=== PATIENT | female | born 1990 | race Caucasian/White ===

== ENCOUNTER 2017-04-25 19:16 | Emergency (ER) | payer OTHER ==
[2017-04-25 19:27] VITALS: BP 129/66; PULSE 108; RESP 18; TEMP 98.8
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
--- NOTE | 2017-04-25 20:04 | XR ---
EXAMINATION TYPE: XR cervical spine comp DATE OF EXAM: 04/25/2017 CLINICAL HISTORY: pain COMPARISON: NONE TECHNIQUE: Frontal, lateral, oblique, swimmers, and open mouth view of the cervical spine are obtaine d. FINDINGS: The cervical spine is visualized in its entirety from C1 thru the top of T1 level. It is s atisfactory in alignment without evidence of acute fracture or dislocation. The pre-vertebral soft t issue appears within normal limits. Disc spaces are well preserved. The C1-C2 articulation is unremar kable on the open mouth view. The oblique images are within normal limits. IMPRESSION: No acute fracture or dislocation is seen in the cervical spine.ICD 10 NO FRACTURE, INITI AL EVALUATION
--- NOTE | 2017-04-25 20:04 | XR ---
EXAMINATION TYPE: XR lumbar spine 2 or 3V DATE OF EXAM: 04/25/2017 CLINICAL HISTORY: pain TECHNIQUE: Three views of the lumbar spine are submitted. COMPARISON: None. FINDINGS: There are 5 lumbar type vertebral bodies identified. The lumbar spine shows satisfactory alignment w ithout evidence of acute fracture or dislocation. Vertebral body heights are within normal limits. Disc spaces are within normal limits. The overlying soft tissue appears unremarkable. Mild curvature convex to the right. IMPRESSION: No acute fracture or dislocation is seen in the lumbar spine. ICD 10 NO FRACTURE, INITIAL EVALUATION
--- NOTE | 2017-04-25 20:05 | XR ---
EXAMINATION TYPE: XR thoracic spine 2V DATE OF EXAM: 04/25/2017 CLINICAL HISTORY: pain TECHNIQUE: Frontal, lateral, and swimmer's view of thoracic spine are obtained. COMPARISON: None. FINDINGS: Thoracic spine show satisfactory alignment without evidence of acute fracture or dislocatio n. Vertebral body heights are preserved. Disc spaces are well preserved. Minimal ventral spondylos is. Visualized ribs are unremarkable. IMPRESSION: No acute fracture or dislocation is seen in the thoracic spine. ICD 10 NO FRACTURE, INIT IAL EVALUATION
[2017-04-25] MEDS ORDERED: CYCLOBENZAPRINE 10 MG TAB PO STA (20:11)
[2017-04-25] MEDS ORDERED: Acetaminophen-Codeine 300-30mg TAB PO STA (20:11)
== END 2017-04-25 20:20 | disposition home or self-care (01) ==
LOC: EC 19:16
DX: S13.4XXA Sprain of ligaments of cervical spine, initial encounter (principal); M54.9 Dorsalgia, unspecified; Z88.8 Allergy status to other drugs, medicaments and biological substances; V46.5XXA Car driver injured in collision with other nonmotor vehicle in traffic accident, initial encounter; Y92.410 Unspecified street and highway as the place of occurrence of the external cause
CPT/HCPCS: 72050; 72070; 72100; 99284

== ENCOUNTER 2018-08-02 08:36 | Emergency (ER) | payer OTHER ==
[2018-08-02] MEDS ORDERED: SODIUM CHLORIDE 0.9% 1,000 ML IV STA (08:52)
[2018-08-02] MEDS ORDERED: ONDANSETRON 4 MG/2 ML VIAL IVP STA (08:52)
[2018-08-02] MEDS ORDERED: MAG HYDROX/AL HYDROX/SIMETH 30 ML, HYOSCYAMINE ELIXIR 10 ML, CIMETIDINE HCL 300 MG, LID... PO STA ×4 (08:52)
--- NOTE | 2018-08-02 08:56 | ED ---
General Adult HPI - General Chief complaint: Upper Respiratory Infection Stated complaint: chest pain/congestion Time Seen by Provider: 08/02/18 08:42 Source: patient, RN notes reviewed Mode of arrival: ambulatory Limitations: no limitations - History of Present Illness Initial comments: Patient 27-year-old female presenting to the emergency room today with a chief complaint of chest pain. She does admit that she's had some pain similar to this in the past for she has drank milk and it has helped the symptoms. She states it started last night before she went to bed. States approximately 8 PM felt a little nauseous. Woke up at 2 PM with some chest discomfort. She states it's from the top the abdomen up to her throat. She states it's a pulling type sensation. She states it is worse when she takes a deep breath. Denies any leg pain or swelling. Denies any other complaints or symptoms at this time. States nausea has improved. Currently rates her pain 4/10. Patient denies any recent fever, chills, back pain, vomiting, numbness or tingling, headaches or visual changes, or any other complaints. - Related Data Previous Rx's Medication Instructions Recorded Acetaminophen-Codeine 300-30mg 1 tab PO Q4H PRN #20 tablet 04/25/17 [Tylenol #3] Cyclobenzaprine [Flexeril] 10 mg PO TID PRN #15 tab 04/25/17 Ibuprofen [Motrin] 600 mg PO Q8HR PRN #30 tab 04/25/17 Famotidine [Pepcid] 20 mg PO BID #20 tablet 08/02/18 Allergies Allergy/AdvReac Type Severity Reaction Status Date / Time terbinafine [From Lamisil] Allergy Unknown Verified 08/02/18 08:40 Review of Systems ROS Statement: Those systems with pertinent positive or pertinent negative responses have been documented in the HPI. ROS Other: All systems not noted in ROS Statement are negative. Past Medical History Past Medical History: No Reported History History of Any Multi-Drug Resistant Organisms: None Reported Past Surgical History: Section, Cholecystectomy, Orthopedic Surgery Past Psychological History: Anxiety Smoking Status: Never smoker Past Alcohol Use History: Occasional Past Drug Use History: None Reported General Exam - General Exam Comments Initial Comments: General: The patient is awake and alert, in no distress, and does not appear acutely ill. Eye: There is normal conjunctiva bilaterally. No signs of icterus. Ears, nose, mouth and throat: There are moist mucous membranes and no oral lesions. Neck: The neck is supple, there is no tenderness or JVD. Cardiovascular: There is a regular rate and rhythm. No murmur, rub or gallop is appreciated. Respiratory: Lungs are clear to auscultation, respirations are non-labored, breath sounds are equal. No wheezes, stridor, rales, or rhonchi. Gastrointestinal: Patient has normal appearance abdomen. Abdomen soft on palpation. Mild tenderness in both left and right upper quadrants and epigastric area. Musculoskeletal: Normal ROM, no tenderness. Strength 5/5. Sensation intact. Pulses equal bilaterally 2+. Neurological: A&O x 3. CN II-XII intact, There are no obvious motor or sensory deficits. Coordination appears grossly intact. Speech is normal. Skin: Skin is warm and dry and no rashes or lesions are noted. Psychiatric: Cooperative, appropriate mood & affect, normal judgment. Limitations: no limitations Course Vital Signs 08/02/18 08/02/18 08:36 09:30 Temperature 98.2 F 96.5 F L Pulse Rate 111 H 91 Respiratory 20 18 Rate Blood Pressure 117/88 128/66 O2 Sat by Pulse 100 97 Oximetry EKG Findings - EKG Comments: EKG Findings:: Patient's EKG performed at 0917: Shows normal sinus rhythm at 85 beats per minute. TX interval 148. QRS 90. QT/QTC 364/433. No acute ST changes. Medical Decision Making - Medical Decision Making Patient's labs were reviewed. Patient was feeling better after GI cocktail. Her d-dimer was elevated at 1.2. CT the chest was obtained showing no evidence of PE. Patient's feeling well at this time will be discharged home. Will be started on a prescription for Pepcid for acid reflux. Patient is advised follow -up with family doctor in the next 2 days returning if symptoms increase or worsen. - Lab Data Result diagrams: 08/02/18 09:38 08/02/18 09:38 Lab Results 08/02/18 08/02/18 08/02/18 Range/Units 09:38 09:38 09:38 WBC 7.9 (3.8-10.6) k/uL RBC 4.64 (3.80-5.40) m/uL Hgb 14.0 (11.4-16.0) gm/dL Hct 40.7 (34.0-46.0) % MCV 87.6 (80.0-100.0) fL MCH 30.2 (25.0-35.0) pg MCHC 34.5 (31.0-37.0) g/dL RDW 12.6 (11.5-15.5) % Plt Count 312 (150-450) k/uL Neutrophils % 83 % Lymphocytes % 10 % Monocytes % 5 % Eosinophils % 1 % Basophils % 0 % Neutrophils # 6.5 (1.3-7.7) k/uL Lymphocytes # 0.8 L (1.0-4.8) k/uL Monocytes # 0.4 (0-1.0) k/uL Eosinophils # 0.1 (0-0.7) k/uL Basophils # 0.0 (0-0.2) k/uL PT (9.0-12.0) sec INR (<1.2) APTT (22.0-30.0) sec D-Dimer (<0.60) mg/L FEU Sodium 140 (137-145) mmol/L Potassium 4.4 (3.5-5.1) mmol/L Chloride 108 H (98-107) mmol/L Carbon Dioxide 24 (22-30) mmol/L Anion Gap 8 mmol/L BUN 15 (7-17) mg/dL Creatinine 0.66 (0.52-1.04) mg/dL Est GFR (CKD-EPI)AfAm >90 (>60 ml/min/1.73 sqM) Est GFR (CKD-EPI)NonAf >90 (>60 ml/min/1.73 sqM) Glucose 93 (74-99) mg/dL Calcium 9.2 (8.4-10.2) mg/dL Total Bilirubin 0.6 (0.2-1.3) mg/dL AST 20 (14-36) U/L ALT 28 (9-52) U/L Alkaline Phosphatase 86 (38-126) U/L Troponin I (0.000-0.034) ng/mL Total Protein 7.1 (6.3-8.2) g/dL Albumin 3.9 (3.5-5.0) g/dL Amylase 53 (30-110) U/L Lipase 48 (23-300) U/L Urine Color Urine Appearance (Clear) Urine pH (5.0-8.0) Ur Specific War[place] (1.001-1.035) Urine Protein (Negative) Urine Glucose (UA) (Negative) Urine Ketones (Negative) Urine Blood (Negative) Urine Nitrite (Negative) Urine Bilirubin (Negative) Urine Urobilinogen (<2.0) mg/dL Ur Leukocyte Esterase (Negative) Urine RBC (0-5) /hpf Urine WBC (0-5) /hpf Ur Squamous Epith Cells (0-4) /hpf Urine Bacteria (None) /hpf Urine Mucus (None) /hpf Urine HCG, Qual Not Detected (Not Detectd) 08/02/18 08/02/18 08/02/18 Range/Units 09:38 09:38 09:38 WBC (3.8-10.6) k/uL RBC (3.80-5.40) m/uL Hgb (11.4-16.0) gm/dL Hct (34.0-46.0) % MCV (80.0-100.0) fL MCH (25.0-35.0) pg MCHC (31.0-37.0) g/dL RDW (11.5-15.5) % Plt Count (150-450) k/uL Neutrophils % % Lymphocytes % % Monocytes % % Eosinophils % % Basophils % % Neutrophils # (1.3-7.7) k/uL Lymphocytes # (1.0-4.8) k/uL Monocytes # (0-1.0) k/uL Eosinophils # (0-0.7) k/uL Basophils # (0-0.2) k/uL PT 10.2 (9.0-12.0) sec INR 0.9 (<1.2) APTT 26.7 (22.0-30.0) sec D-Dimer 1.20 H (<0.60) mg/L FEU Sodium (137-145) mmol/L Potassium (3.5-5.1) mmol/L Chloride (98-107) mmol/L Carbon Dioxide (22-30) mmol/L Anion Gap mmol/L BUN (7-17) mg/dL Creatinine (0.52-1.04) mg/dL Est GFR (CKD-EPI)AfAm (>60 ml/min/1.73 sqM) Est GFR (CKD-EPI)NonAf (>60 ml/min/1.73 sqM) Glucose (74-99) mg/dL Calcium (8.4-10.2) mg/dL Total Bilirubin (0.2-1.3) mg/dL AST (14-36) U/L ALT (9-52) U/L Alkaline Phosphatase (38-126) U/L Troponin I <0.012 (0.000-0.034) ng/mL Total Protein (6.3-8.2) g/dL Albumin (3.5-5.0) g/dL Amylase (30-110) U/L Lipase (23-300) U/L Urine Color Yellow Urine Appearance Cloudy H (Clear) Urine pH 6.0 (5.0-8.0) Ur Specific [place] 1.021 (1.001-1.035) Urine Protein Trace H (Negative) Urine Glucose (UA) Negative (Negative) Urine Ketones Negative (Negative) Urine Blood Moderate H (Negative) Urine Nitrite Negative (Negative) Urine Bilirubin Negative (Negative) Urine Urobilinogen <2.0 (<2.0) mg/dL Ur Leukocyte Esterase Large H (Negative) Urine RBC 2 (0-5) /hpf Urine WBC 37 H (0-5) /hpf Ur Squamous Epith Cells 15 H (0-4) /hpf Urine Bacteria Many H (None) /hpf Urine Mucus Rare H (None) /hpf Urine HCG, Qual (Not Detectd) Disposition Clinical Impression: Acid reflux Disposition: HOME SELF-CARE Condition: Good Instructions: Gastroesophageal Reflux Disease (ED) Additional Instructions: Please use medication as discussed. Please follow-up with family doctor in the next 2 days. Please return to emergency room if the symptoms increase or worsen or for any other concerns. Prescriptions: Famotidine [Pepcid] 20 mg PO BID #20 tablet Is patient prescribed a controlled substance at d/c from ED?: No Referrals: Angela Ashraf MD [Primary Care Provider] - 1-2 days Time of Disposition: 12:24
[2018-08-02 10:03] LABS: Basophils % (A) 0 %; Eosinophils # (A) 0.1 k/uL (0-0.7); Eosinophils % (A) 1 %; HCT 40.7 % (34.0-46.0); Lymphocytes # (A) 0.8 k/uL (1.0-4.8); Lymphocytes % (A) 10 %; MCH 30.2 pg (25.0-35.0); MCHC 34.5 g/dL (31.0-37.0); MCV 87.6 fL (80.0-100.0); Mean Platelet Volume 7.1; Monocytes # (A) 0.4 k/uL (0-1.0); Monocytes % (A) 5 %; Neutrophils # (A) 6.5 k/uL (1.3-7.7); Neutrophils % (A) 83 %; Platelet Count 312 k/uL (150-450); RBC 4.64 m/uL (3.80-5.40); RDW 12.6 % (11.5-15.5); WBC 7.9 k/uL (3.8-10.6)
[2018-08-02 10:11] LABS: Appearance,Urine Cloudy (Clear); Bacteria,Urine Many /hpf; Bilirubin,Urine Negative (Negative); Blood,Urine Moderate (Negative); Color,Urine Yellow; Glucose,Urine (UA) Negative (Negative); Ketones,Urine Negative (Negative); Leukocyte Esterase,Urine Large (Negative); Mucus,Urine Rare /hpf; Nitrite,Urine Negative (Negative); Protein,Urine Trace (Negative); RBC,Urine 2 /hpf (0-5); Specific Gravity,Urine 1.021 (1.001-1.035); Squamous Epithelial Cell,Urine 15 /hpf (0-4); Urobilinogen,Urine <2.0 mg/dL (<2.0)
[2018-08-02 10:13] LABS: INR 0.9 (<1.2); Partial Thromboplastin Time 26.7 sec (22.0-30.0); Prothrombin Time 10.2 sec (9.0-12.0)
[2018-08-02 10:14] LABS: ALT 28 U/L (9-52); AST 20 U/L (14-36); Albumin 3.9 g/dL (3.5-5.0); Alkaline Phosphatase 86 U/L (38-126); Amylase 53 U/L (30-110); Anion Gap 8 mmol/L; Blood Urea Nitrogen 15 mg/dL (7-17); Calcium 9.2 mg/dL (8.4-10.2); Carbon Dioxide 24 mmol/L (22-30); Chloride 108 mmol/L (98-107); Glucose 93 mg/dL (74-99); Lipase 48 U/L (23-300); Potassium 4.4 mmol/L (3.5-5.1); Sodium 140 mmol/L (137-145); Total Bilirubin 0.6 mg/dL (0.2-1.3); Total Protein 7.1 g/dL (6.3-8.2)
--- NOTE | 2018-08-02 10:26 | XR ---
EXAMINATION TYPE: XR chest 2V DATE OF EXAM: 08/02/2018 COMPARISON: NONE TECHNIQUE: PA and lateral views submitted. HISTORY: Chest pain FINDINGS: The lungs are clear and there is no pneumothorax, pleural effusion, or focal pneumonia. Hypertrophi c change of the spine. Surgical clips in the abdomen. No overt failure. IMPRESSION: 1. No acute process.
[2018-08-02 11:08] LABS: D-Dimer 1.2 mg/L FEU (<0.60)
--- NOTE | 2018-08-02 12:08 | CT ---
EXAMINATION TYPE: CT angio chest DATE OF EXAM: 08/02/2018 COMPARISON: Chest x-ray same date HISTORY: Chest pain/congestion, elevated d-dimer CT DLP: 317 mGycm Automated exposure control for dose reduction was used. CONTRAST: CTA scan of the thorax is performed without and with IV Contrast, patient injected with 100 ml mL of Isovue 370, pulmonary embolism protocol. MIP images are created and reviewed. 3D reconstructed imag es are created on an independent workstation and reviewed. FINDINGS: LUNGS: The lungs are grossly clear, there is no concerning parenchymal mass or nodule identified. T here is no pleural effusion or pneumothorax seen. Minimal dependent atelectatic changes are present. The tracheobronchial tree is patent. Soft tissue in the anterior mediastinum compatible with thymic remnant. AORTA: No additional significant abnormality is seen. MEDIASTINUM: There is satisfactory enhancement of the pulmonary artery and its branches, there is no CT evidence for pulmonary embolism. There are no greater than 1 cm hilar or mediastinal lymph nodes. No pericardial effusion is seen. OTHER: There is a small hiatal hernia. Patient is post cholecystectomy. IMPRESSION: NO EVIDENT PULMONARY EMBOLISM.
[2018-08-02] MEDS ORDERED: FAMOTIDINE 20 MG/2 ML VIAL IV STA (12:22)
[2018-08-02 12:34] VITALS: BP 138/70; PULSE 78; RESP 16; TEMP 97.8
== END 2018-08-02 12:33 | disposition home or self-care (01) ==
LOC: EC 08:36
DX: K21.9 Gastro-esophageal reflux disease without esophagitis (principal); Z88.8 Allergy status to other drugs, medicaments and biological substances
CPT/HCPCS: 36415; 71046; 71275; 80053; 81001; 81025; 82150; 83690; 84484; 85025; 85379; 85610; 85730; 87086; 93005; 96361; 96374; 96375; 99285

== ENCOUNTER → 2019-09-16 | Outpatient (CLI) | payer OTHER ==
--- NOTE | 2019-09-16 11:28 | CT ---
EXAMINATION TYPE: CT sinus wo con DATE OF EXAM: 09/16/2019 COMPARISON: None HISTORY: Chronic sinusitis CT DLP: 577.[address] of the paranasal sinuses was performed in the axial and coronal planes. Bone and soft tissue settings are submitted. The paranasal sinuses demonstrate normal aeration and development. Mild mucosal thickening at the base of the maxillary sinuses. Minimal mucosal thickening upper left s ided ethmoid air cell. Remaining paranasal sinuses are well-aerated. The osteal meatal units are patent bilaterally. The nasal septum is midline. No bony destructive changes are seen within the field of view. IMPRESSION: Mild chronic sinusitis
== END | disposition home or self-care (01) ==
LOC: RADCTMAIN 10:45
PROVIDERS: ATTEND Otolaryngology
DX: J32.9 Chronic sinusitis, unspecified (principal)
CPT/HCPCS: 70486

== ENCOUNTER → 2020-11-24 | Outpatient (CLI) | payer OTHER ==
--- NOTE | 2020-11-25 04:47 | MR ---
EXAMINATION TYPE: MR knee LT wo con DATE OF EXAM: 11/24/2020 COMPARISON: Outside radiograph 11/09/2020 HISTORY: 29-year-old female Left knee pain, swelling, and locking for 2 months. TECHNIQUE: Multiplanar, multisequence imaging of the left knee is performed without IV contrast. FINDINGS: ACL, PCL, and MCL are intact. Some mild tenosynovial fluid is seen extending along the popliteus tendon sheath. Some changes extend into the popliteus myotendinous junction and could reflect sequela of underlying muscle strain. Clin ically correlate. Otherwise, LCL complex is intact. There is signal at the junction of the posterior horn and body of the medial meniscus that appears to contact the tibial articular surface on one image, sagittal image 25. Otherwise, the medial meniscus is intact. Minimal inner margin fraying of the posterior horn of the lateral meniscus, refer to coronal image 22 . Degenerative signal also noted within the body of the lateral meniscus, coronal image 21. Tricompartmental articular cartilage is maintained. Mild edema within the suprapatellar fat pad. Extensor mechanism is intact. Physiologic joint fluid. N o Bryan's cyst. Normal popliteal artery anatomy. No muscle atrophy. Patchy red marrow likely a consequence of patient 's relatively young age. IMPRESSION: 1. Fluid extending along the popliteus myotendinous junction could reflect sequela of previous muscle strain. No significant muscle edema. Clinically correlate. 2. Inner margin fraying along the posterior horn of the lateral meniscus and some degenerative signal in the body of the lateral meniscus. 3. Possible small undersurface meniscal tear at the junction of the posterior horn and body of the me dial meniscus, seen on one sagittal image. 4. Mild edema within the suprapatellar fat pad may be seen in the setting of fat pad impingement synd adry. Clinically correlate.
== END | disposition home or self-care (01) ==
LOC: RADMRIMAIN 15:00
PROVIDERS: ATTEND Orthopaedic Surgery
DX: M17.12 Unilateral primary osteoarthritis, left knee (principal)

== ENCOUNTER → 2020-12-13 | Outpatient (CLI) | payer OTHER ==
[2020-12-13 13:12] LABS: Basophils # (A) 0.1 k/uL (0-0.2); Basophils % (A) 1 %; Eosinophils # (A) 0.2 k/uL (0-0.7); Eosinophils % (A) 3 %; HCT 41.2 % (34.0-46.0); HGB 13.9 gm/dL (11.4-16.0); Lymphocytes # (A) 1.9 k/uL (1.0-4.8); Lymphocytes % (A) 26 %; MCH 29.1 pg (25.0-35.0); MCHC 33.6 g/dL (31.0-37.0); MCV 86.5 fL (80.0-100.0); Mean Platelet Volume 7.3; Monocytes # (A) 0.4 k/uL (0-1.0); Monocytes % (A) 6 %; Neutrophils # (A) 4.7 k/uL (1.3-7.7); Neutrophils % (A) 64 %; Platelet Count 323 k/uL (150-450); RBC 4.77 m/uL (3.80-5.40); RDW 12.6 % (11.5-15.5); WBC 7.3 k/uL (3.8-10.6)
[2020-12-13 13:42] LABS: Potassium 4.2 mmol/L (3.5-5.1)
== END | disposition home or self-care (01) ==
LOC: LABPAT 11:32
PROVIDERS: ATTEND Orthopaedic Surgery
DX: M23.92 Unspecified internal derangement of left knee (principal)
CPT/HCPCS: 36415; 80051; 81025; 85025

== ENCOUNTER 2020-12-23 11:03 | Day surgery (SDC) | payer OTHER ==
[2020-12-20 13:06] VITALS: BMI 38.9
--- NOTE | 2020-12-22 17:24 | HP ---
HISTORY AND PHYSICAL DATE OF SURGERY: 12/23/2020 Nickie Boland is a 30-year-old patient seen with progressive left knee pain. We discussed options. She elected to proceed with arthroscopy. Consent was obtained. PAST MEDICAL HISTORY: Anxiety. PAST SURGICAL HISTORY: Left knee arthroscopy. DAILY MEDICATIONS: Buspirone. ALLERGIES: NONE. SOCIAL HISTORY: She denies tobacco use. PHYSICAL EVALUATION OF THE LEFT KNEE: Range of motion is zero to 130. Mild effusion. Tenderness along the medial and lateral joint lines. Positive medial Clementina's. Ligaments are stable. Hip rotation is without pain. Distal neurovascular exam is intact. RADIOGRAPHS: Radiographs of the left knee revealed mild osteoarthritis. MRI of the left knee revealed a medial meniscal tear. IMPRESSION: Internal derangement of the left knee with medial meniscal tear. PLAN: Left knee arthroscopy with partial meniscectomy and debridement. MMODL / IJN: [id number] /
[~2020-12-23 11:03] MED LIST: LACTATED RINGERS 1,000 ML IV SCH; LIDOCAINE 1% (10MG/ML) FOR IV START INTRADERMA PRN
[2020-12-23] MEDS ORDERED: ONDANSETRON 4 MG/2 ML VIAL ONE (12:18)
[2020-12-23] MEDS ORDERED: DEXAMETHASONE SOD PHOSPHATE 4 MG/ML 1 ML VIAL IVP ONE (12:20)
[2020-12-23] MEDS ORDERED: SCOPOLAMINE 1.5MG/72HR PATCH TRANSDERM ONE (12:21)
[2020-12-23] MEDS ORDERED: fentaNYL (PF) 50 MCG/ML 2 ML AMP ONE (13:05)
[2020-12-23] MEDS ORDERED: PROPOFOL 10 MG/ML 20 ML VIAL IV ONE (13:05)
[2020-12-23] MEDS ORDERED: SUCCINYLCHOLINE CHLORIDE 100 MG/5 ML SYR IV ONE (13:05)
[2020-12-23] MEDS ORDERED: LIDOCAINE 1% INJ 10MG/ML (20 ML MDV) ONE (13:05)
[2020-12-23] MEDS ORDERED: MIDAZOLAM 2 MG/2 ML VIAL ONE (13:05)
[2020-12-23] MEDS ORDERED: BUPIVACAINE (PF) 0.25% 30 ML VIAL SQ ONE ×2 (13:15→13:41)
--- NOTE | 2020-12-23 14:02 | P.OP ---
Date of Procedure: 12/23/20 Preoperative Diagnosis: Internal derangement left knee Postoperative Diagnosis: 1. Tear lateral meniscus left knee 2. Grade 3/4 chondromalacia medial femoral condyle left knee 3. Reactive synovitis medial, lateral and suprapatellar compartments left knee Procedure(s) Performed: 1. Arthroscopic partial lateral meniscectomy left knee 2. Arthroscopic chondroplasty medial femoral condyle left knee 3. Arthroscopic microfracture medial femoral condyle left knee 4. Arthroscopic partial synovectomy medial, lateral and suprapatellar compartments left knee Anesthesia: SOUTHA, local Surgeon: Tu Tavera Estimated Blood Loss (ml): 7 Pathology: none sent Condition: stable Disposition: PACU Indications for Procedure: 30-year-old patient seen with progressive left knee pain. After treatment options were discussed, she elected to proceed with arthroscopy Operative Findings: See description of procedure Description of Procedure: Patient was taken to the operative suite. Patient underwent a general anesthetic by the department of anesthesia. Patient was given preoperative antibiotics. The left lower extremity was placed in a well-padded arthroscopic leg sherman. The left leg was prepped and draped in the normal sterile orthopedic fashion. A lateral parapatellar and suprapatellar incision was made. Trochars were inserted. Arthroscopy was initiated. Suprapatellar pouch revealed diffuse thick reactive synovitis. The patellofemoral joint appeared to articulate congruently. There grade 1 chondromalacia of the patella with no osteochondral tears present. The scope was guided into the medial gutter. No loose bodies or plica were identified. The scope was then guided into the medial compartment. A medial parapatellar incision was made. Trocar inserted followed by probe. There was a large osteochondral flap tear involving the weightbearing surface of the medial femoral condyle with what appeared be grade 3/4 chondromalacia present. The meniscus was probed and found to be stable. There was thick reactive synovitis anteriorly. I introduced a motorized shaver and performed a chondroplasty of the medial femoral condyle getting down to stable osteochondral tissue. I performed a partial synovectomy decompressing the thick reactive synovitis along the anterior aspect medial compartment. The shaver was removed. There was good decompression of the synovitis. That area of grade 3/4 chondromalacia of the medial femoral condyle revealed a small area of exposed bone. I performed a microfracture to that area penetrating the bone with resultant bleeding at the microfracture site. Scope and probe were then guided into the intercondylar notch. Cruciates were identified, probed and found to be table. The scope and probe were then guided into lateral compartment. There was a radial tear involving the midbody area of the lateral meniscus. There was no significant chondromalacia. There was some thick reactive synovitis anteriorly. I performed a partial medial meniscectomy getti ng down to stable meniscal tissue. I performed a partial synovectomy decompressing the thick reactive synovitis. The shaver was removed. There was good decompression of the synovitis. The scope was in guided back into the suprapatellar compartment. I introduced the motorized shaver into the suprapatellar compartment. I debrided some piecemeal fragments of meniscus that I encountered. I performed a partial synovectomy decompressing the thick reactive synovitis. The shaver was removed. There was good decompression of the synovitis. I took one more look on the entire knee, no residual debris. Instruments were now removed from the joint. The joint was infiltrated with .25% Marcaine. Steri-Strips were applied to the portal sites. Sterile dressings were applied. The patient was placed into a AMELIA hose. No tourniquet was utilized. The patient was awakened, transferred to a bed and taken to recovery stable satisfactory condition.
[2020-12-23 14:19] VITALS: TEMP 97.2
[2020-12-23 14:20] VITALS: RESP 16
[2020-12-23 15:14] VITALS: BP 104/67; PULSE 67
== END 2020-12-23 15:24 | disposition home or self-care (01) ==
LOC: OR 11:03
PROVIDERS: ATTEND Orthopaedic Surgery
DX: S83.282A Other tear of lateral meniscus, current injury, left knee, initial encounter (principal); M22.42 Chondromalacia patellae, left knee; M65.862 Other synovitis and tenosynovitis, left lower leg; M17.12 Unilateral primary osteoarthritis, left knee; F41.9 Anxiety disorder, unspecified; Z79.899 Other long term (current) drug therapy; Z88.8 Allergy status to other drugs, medicaments and biological substances; X58.XXXA Exposure to other specified factors, initial encounter
CPT/HCPCS: 29881; 29879; 29876; 81025; J2250; J1100; J0690; J2405; J2001; J3010; J0330; J2704

== ENCOUNTER 2022-02-09 15:00 | Emergency (ER) | payer OTHER ==
[2022-02-09 16:50] VITALS: RESP 18; TEMP 98.9
[2022-02-09 17:21] LABS: Appearance,Urine Turbid (Clear); Bacteria,Urine Moderate /hpf; Bilirubin,Urine Negative (Negative); Blood,Urine Negative (Negative); Color,Urine Yellow; Glucose,Urine (UA) Negative (Negative); Ketones,Urine 1+ (Negative); Leukocyte Esterase,Urine Large (Negative); Mucus,Urine Many /hpf; Nitrite,Urine Positive (Negative); Protein,Urine Trace (Negative); RBC,Urine 5 /hpf (0-5); Specific Gravity,Urine 1.021 (1.001-1.035); Squamous Epithelial Cell,Urine 20 /hpf (0-4); Urobilinogen,Urine <2.0 mg/dL (<2.0); WBC,Urine 28 /hpf (0-5)
[2022-02-09] MEDS ORDERED: SODIUM CHLORIDE 0.9% 1,000 ML IV STA (21:50)
[2022-02-09] MEDS ORDERED: cefTRIAXone IN SWFI 1,000 MG/10 ML SYRINGE IVP STA (21:50)
[2022-02-09] MEDS ORDERED: ONDANSETRON 4 MG/2 ML VIAL IVP STA (21:51)
[2022-02-09] MEDS ORDERED: KETOROLAC 15 MG/ML 1 ML VIAL IVP STA (21:51)
[2022-02-09 22:06] VITALS: BP 123/90; PULSE 70
[2022-02-09 22:12] LABS: Basophils % (A) 0 %; Eosinophils # (A) 0.1 k/uL (0-0.7); Eosinophils % (A) 1 %; HCT 41.8 % (34.0-46.0); Lymphocytes # (A) 1.8 k/uL (1.0-4.8); Lymphocytes % (A) 17 %; MCHC 33.4 g/dL (31.0-37.0); MCV 89.8 fL (80.0-100.0); Monocytes # (A) 0.6 k/uL (0-1.0); Monocytes % (A) 5 %; Neutrophils # (A) 7.9 k/uL (1.3-7.7); Neutrophils % (A) 75 %; Platelet Count 348 k/uL (150-450); RBC 4.65 m/uL (3.80-5.40); RDW 13.1 % (11.5-15.5); WBC 10.5 k/uL (3.8-10.6)
--- NOTE | 2022-02-09 22:14 | ED ---
Abdominal Pain HPI - General Chief Complaint: Abdominal Pain Stated Complaint: Nausea,Vomiting,Back pain Time Seen by Provider: 02/09/22 21:24 Source: patient, RN notes reviewed Mode of arrival: ambulatory Limitations: no limitations - History of Present Illness Initial Comments: This is a 31-year-old female who presents to the emergency department with right lower back pain. This started earlier today, it is wrapping around to the front of her abdomen in the RLQ. Denies any dysuria. She does have associated nausea and vomiting with the pain. She has never had symptoms like this in the past. She has not tried taking anything for her pain. The pain worsens when she tries to move. Denies any fevers, chills, sore throat, cough, dyspnea, chest pain, palpitations, diarrhea, or headaches. MD Complaint: abdominal pain Location: R flank Radiation: RLQ Quality: cramping, stabbing Consistency: constant Worsens With: movement Associated Symptoms: nausea, vomiting - Related Data Home Medications Medication Instructions Recorded Confirmed [id number] 1 tab PO DIRECTED PRN 08/02/12/23/20 [Excedrin] Buspirone (Uknown Dose) 1 tab PO DIRECTED PRN 12/20/20 12/23/20 Calcium Carbonate [Tums] 500 mg PO DIRECTED PRN 12/20/20 12/23/20 Depo Injection 1 dose IM DIRECTED 12/20/20 12/23/20 Depression Med (Unknown Name) 1 tab PO HS 12/20/20 12/23/20 Previous Rx's Medication Instructions Recorded HYDROcodone/APAP 7.5-325MG [[place] 1 each PO Q6HR PRN #21 tab 12/23/20 7.5] HYDROcodone/APAP 5-325MG [[place] 1 tab PO Q6HR PRN 3 Days #12 tab 02/09/22 5-325] Ondansetron Odt [Zofran Odt] 4 mg PO Q8HR PRN #10 tab 02/09/22 Sulfamethox-Tmp 800-160Mg [Bactrim 1 tab PO Q12HR 7 Days #14 tab 02/09/22 DS 800-160 mg] Allergies Allergy/AdvReac Type Severity Reaction Status Date / Time No Known Allergies Allergy Verified 02/09/22 16:50 Review of Systems ROS Statement: Those systems with pertinent positive or pertinent negative responses have been documented in the HPI. ROS Other: All systems not noted in ROS Statement are negative. Past Medical History Past Medical History: No Reported History History of Any Multi-Drug Resistant Organisms: None Reported Past Surgical History: Section, Cholecystectomy, Orthopedic Surgery Additional Past Surgical History / Comment(s): left knee scope x2 Past Psychological History: Anxiety Smoking Status: Never smoker Past Alcohol Use History: Occasional Past Drug Use History: None Reported General Exam Limitations: no limitations General appearance: alert, in no apparent distress Head exam: Present: atraumatic, normocephalic, normal inspection Respiratory exam: Present: normal lung sounds bilaterally. Absent: respiratory distress, wheezes, rales, rhonchi, stridor Cardiovascular Exam: Present: regular rate, normal rhythm, normal heart sounds. Absent: systolic murmur, diastolic murmur, rubs, gallop, clicks GI/Abdominal exam: Present: soft, tenderness (RLQ), normal bowel sounds. Absent: distended, guarding, rebound, rigid Back exam: Present: CVA tenderness (R). Absent: CVA tenderness (L) Neurological exam: Present: alert, oriented X3, CN II-XII intact Psychiatric exam: Present: normal affect, normal mood Skin exam: Present: warm, dry, intact, normal color. Absent: rash Course Vital Signs 02/09/22 02/09/22 16:47 22:00 Temperature 98.9 F Pulse Rate 94 70 Respiratory 18 18 Rate Blood Pressure 125/90 123/90 O2 Sat by Pulse 99 96 Oximetry Medical Decision Making - Medical Decision Making This is a 31-year-old female who presents to the emergency department for right flank pain. Urinalysis is positive for a UTI. Lab work is otherwise nonactionable. Computed tomography scan of the abdomen and pelvis obtained given that the symptoms were similar to an appendicitis and there is not a CT for comparison. Although the patient believes she has a history of kidney stones, we have no imaging in our system to prove that. Computed tomography had no acute irregularities. Given the associated flank pain and nausea/vomiting, she has most likely developed a pyelonephritis. Patient was given IV fluids, Zofran, Toradol, and a one-time dose of ceftriaxone in the emergency department. Patient did feel improved after medication, however she was still in pain. Patient will be discharged with a prescription for Zofran, Bactrim, and [place]. Will also provide a starter pack for Tylenol #3 and Zofran, as pharmacies are closed at the time of her discharge. Return precautions reviewed in depth, the patient is instructed to return to the emergency department with any new, worsening, or concerning symptoms. Patient verbalized understanding. This case was discussed in detail with the attending ED physician. Presentation, findings, and treatment plan discussed in detail as well. - Lab Data Result diagrams: 02/09/22 22:00 02/09/22 22:00 Lab Results 02/09/22 02/09/22 02/09/22 Range/Units 16:50 16:50 22:00 WBC 10.5 (3.8-10.6) k/uL RBC 4.65 (3.80-5.40) m/uL Hgb 14.0 (11.4-16.0) gm/dL Hct 41.8 (34.0-46.0) % MCV 89.8 (80.0-100.0) fL MCH 30.0 (25.0-35.0) pg MCHC 33.4 (31.0-37.0) g/dL RDW 13.1 (11.5-15.5) % Plt Count 348 (150-450) k/uL MPV 8.0 Neutrophils % 75 % Lymphocytes % 17 % Monocytes % 5 % Eosinophils % 1 % Basophils % 0 % Neutrophils # 7.9 H (1.3-7.7) k/uL Lymphocytes # 1.8 (1.0-4.8) k/uL Monocytes # 0.6 (0-1.0) k/uL Eosinophils # 0.1 (0-0.7) k/uL Basophils # 0.0 (0-0.2) k/uL Sodium (137-145) mmol/L Potassium (3.5-5.1) mmol/L Chloride (98-107) mmol/L Carbon Dioxide (22-30) mmol/L Anion Gap mmol/L BUN (7-17) mg/dL Creatinine (0.52-1.04) mg/dL Est GFR (CKD-EPI)AfAm (>60 ml/min/1.73 sqM) Est GFR (CKD-EPI)NonAf (>60 ml/min/1.73 sqM) Glucose (74-99) mg/dL Calcium (8.4-10.2) mg/dL Total Bilirubin (0.2-1.3) mg/dL AST (14-36) U/L ALT (4-34) U/L Alkaline Phosphatase (38-126) U/L Total Protein (6.3-8.2) g/dL Albumin (3.5-5.0) g/dL Amylase (30-110) U/L Lipase (23-300) U/L Urine Color Yellow Urine Appearance Turbid H (Clear) Urine pH 6.0 (5.0-8.0) Ur Specific [place] 1.021 (1.001-1.035) Urine Protein Trace H (Negative) Urine Glucose (UA) Negative (Negative) Urine Ketones 1+ H (Negative) Urine Blood Negative (Negative) Urine Nitrite Positive H (Negative) Urine Bilirubin Negative (Negative) Urine Urobilinogen <2.0 (<2.0) mg/dL Ur Leukocyte Esterase Large H (Negative) Urine RBC 5 (0-5) /hpf Urine WBC 28 H (0-5) /hpf Ur Squamous Epith Cells 20 H (0-4) /hpf Urine Bacteria Moderate H (None) /hpf Urine Mucus Many H (None) /hpf Urine HCG, Qual Not Detected (Not Detectd) 02/09/22 Range/Units 22:00 WBC (3.8-10.6) k/uL RBC (3.80-5.40) m/uL Hgb (11.4-16.0) gm/dL Hct (34.0-46.0) % MCV (80.0-100.0) fL MCH (25.0-35.0) pg MCHC (31.0-37.0) g/dL RDW (11.5-15.5) % Plt Count (150-450) k/uL MPV Neutrophils % % Lymphocytes % % Monocytes % % Eosinophils % % Basophils % % Neutrophils # (1.3-7.7) k/uL Lymphocytes # (1.0-4.8) k/uL Monocytes # (0-1.0) k/uL Eosinophils # (0-0.7) k/uL Basophils # (0-0.2) k/uL Sodium 141 (137-145) mmol/L Potassium 3.7 (3.5-5.1) mmol/L Chloride 104 (98-107) mmol/L Carbon Dioxide 27 (22-30) mmol/L Anion Gap 10 mmol/L BUN 10 (7-17) mg/dL Creatinine 0.67 (0.52-1.04) mg/dL Est GFR (CKD-EPI)AfAm >90 (>60 ml/min/1.73 sqM) Est GFR (CKD-EPI)NonAf >90 (>60 ml/min/1.73 sqM) Glucose 103 H (74-99) mg/dL Calcium 9.3 (8.4-10.2) mg/dL Total Bilirubin 0.4 (0.2-1.3) mg/dL AST 17 (14-36) U/L ALT 17 (4-34) U/L Alkaline Phosphatase 99 (38-126) U/L Total Protein 7.4 (6.3-8.2) g/dL Albumin 4.3 (3.5-5.0) g/dL Amylase 55 (30-110) U/L Lipase 46 (23-300) U/L Urine Color Urine Appearance (Clear) Urine pH (5.0-8.0) Ur Specific [place] (1.001-1.035) Urine Protein (Negative) Urine Glucose (UA) (Negative) Urine Ketones (Negative) Urine Blood (Negative) Urine Nitrite (Negative) Urine Bilirubin (Negative) Urine Urobilinogen (<2.0) mg/dL Ur Leukocyte Esterase (Negative) Urine RBC (0-5) /hpf Urine WBC (0-5) /hpf Ur Squamous Epith Cells (0-4) /hpf Urine Bacteria (None) /hpf Urine Mucus (None) /hpf Urine HCG, Qual (Not Detectd) - Radiology Data Radiology results: report reviewed, image reviewed Disposition Clinical Impression: Pyelonephritis Disposition: HOME SELF-CARE Additional Instructions: Return to the emergency department with any new, worsening, or concerning symptoms. Take the antibiotic as prescribed for 7 days. Use the Zofran as needed for nausea and vomiting and take the [place] sparingly for severe pain, otherwise alternate with Tylenol and ibuprofen. Follow up with your primary care provider in 1 to 2 days. Prescriptions: Sulfamethox-Tmp 800-160Mg [Bactrim DS 800-160 mg] 1 tab PO Q12HR 7 Days #14 tab HYDROcodone/APAP 5-325MG [[place] 5-325] 1 tab PO Q6HR PRN 3 Days #12 tab PRN Reason: Pain Ondansetron Odt [Zofran Odt] 4 mg PO Q8HR PRN #10 tab PRN Reason: Nausea And Vomiting Is patient prescribed a controlled substance at d/c from ED?: Yes If prescribed controlled substance>3 days was MAPS reviewed?: Prescribed <3 Days Referrals: Angela Ashraf MD [Primary Care Provider] - 1-2 days
[2022-02-09 22:24] LABS: ALT 17 U/L (4-34); AST 17 U/L (14-36); African American GFR (CKD) >90 (>60 ml/min/1.73 sqM); Albumin 4.3 g/dL (3.5-5.0); Alkaline Phosphatase 99 U/L (38-126); Amylase 55 U/L (30-110); Anion Gap 10 mmol/L; Blood Urea Nitrogen 10 mg/dL (7-17); Calcium 9.3 mg/dL (8.4-10.2); Carbon Dioxide 27 mmol/L (22-30); Chloride 104 mmol/L (98-107); Glucose 103 mg/dL (74-99); Lipase 46 U/L (23-300); Non-African American GFR(CKD) >90 (>60 ml/min/1.73 sqM); Potassium 3.7 mmol/L (3.5-5.1); Sodium 141 mmol/L (137-145); Total Bilirubin 0.4 mg/dL (0.2-1.3); Total Protein 7.4 g/dL (6.3-8.2)
--- NOTE | 2022-02-09 23:09 | CT ---
EXAMINATION TYPE: CT abdomen pelvis w con DATE OF EXAM: 02/09/2022 COMPARISON: None HISTORY: right flank pain, nausea, vomiting CT DLP: 1310.5 mGycm Automated exposure control for dose reduction was used. CONTRAST: Performed with IV Contrast, patient injected with 100 mL of Isovue 300. Images obtained from the diaphragm to the floor the pelvis with IV contrast. Lung bases are clear. No pleural effusion. Heart size is normal. No pericardial effusion. There is sm all hiatal hernia. Liver spleen stomach pancreas appear intact. Bile ducts are not dilated. There are clips from cholecy stectomy. There is no adrenal mass. Kidneys show normal size and contour. No hydronephrosis. Delayed images amor w normal renal excretion. There is satisfactory renal contrast opacification. There is 2 mm calculus posterior left kidney. The ureters are not dilated. There is no retroperitoneal adenopathy. Bladder d istends smoothly. No inguinal hernia. No free fluid in the pelvis. Uterus is anteverted. No pelvic ma ss. Appendix is inferior and posterior and appears normal. There is no mesenteric edema. No ascites or fr ee air. No sign of a bowel obstruction. The lumbar vertebrae have normal alignment. Posterior element are intact. No compression fracture. [place] pelvis is intact. The hip joints are intact. IMPRESSION: Nonobstructing left renal calculus. Normal appendix. I do not see a cause for right-sided flank pain.
[2022-02-09] MEDS ORDERED: ONDANSETRON 4 MG ODT STARTER PACK 2 TAB BTL PO STA (23:15)
[2022-02-09] MEDS ORDERED: ACET/COD 300 MG/30 MG STARTER PACK 6 TAB BTL PO STA (23:15)
== END 2022-02-09 23:30 | disposition home or self-care (01) ==
LOC: EC 15:00
DX: N12 Tubulo-interstitial nephritis, not specified as acute or chronic (principal)
CPT/HCPCS: 36415; 80053; 82150; 83690; 85025; 81001; 81025; 87086; 74177; 99284; 96374; 96375; 96361; J2405; J0696; J1885; Q9967

== ENCOUNTER → 2023-03-19 | Outpatient (CLI) | payer OTHER | END | disposition home or self-care (01) | LOC: LABWHC1 09:25 | PROVIDERS: ATTEND Obstetrics & Gynecology | DX: N94.89 Other specified conditions associated with female genital organs and menstrual cycle (principal) | CPT/HCPCS: 36415; 86480 ==

== ENCOUNTER 2024-05-03 14:21 | Emergency (ER) | payer OTHER ==
--- NOTE | 2024-05-03 14:51 | ED ---
Abdominal Pain HPI - General Chief Complaint: Abdominal Pain Stated Complaint: abd pain Time Seen by Provider: 05/03/24 14:38 Source: patient, RN notes reviewed Mode of arrival: EMS Limitations: no limitations - History of Present Illness Initial Comments: 33-year-old female with no significant history presents emergency department chief complaint of right lower quadrant abdominal pain that has been present over the past 3 days. Patient states that the pain is intermittent of the right lower quadrant and is exacerbated with movement. States that the pain has increased in size over this timeframe. Endorses feelings of nausea this morning. Denies emesis, fevers or chills, dysuria, hematuria, back or flank pain, vaginal discharge or odor. Previous surgical abdominal history of cholecystectomy and section. Patient states that she had her first IUD placed on 04/22/24. - Related Data Home Medications Medication Instructions Recorded Confirmed [id number] [id number] 1 tab PO DIRECTED PRN 08/02/18 12/23/20 [Excedrin] Buspirone (Uknown Dose) 1 tab PO DIRECTED PRN 12/20/20 12/23/20 Calcium Carbonate [Tums] 500 mg PO DIRECTED PRN 12/20/20 12/23/20 Depo Injection 1 dose IM DIRECTED 12/20/20 12/23/20 Depression Med (Unknown Name) 1 tab PO HS 12/20/20 12/23/20 Previous Rx's Medication Instructions Recorded HYDROcodone/APAP 7.5-325MG [[place] 1 each PO Q6HR PRN #21 tab 12/23/20 7.5] HYDROcodone/APAP 5-325MG [[place] 1 tab PO Q6HR PRN 3 Days #12 tab 02/09/22 5-325] Ondansetron Odt [Zofran Odt] 4 mg PO Q8HR PRN #10 tab 02/09/22 Sulfamethox-Tmp 800-160Mg [Bactrim 1 tab PO Q12HR 7 Days #14 tab 02/09/22 DS 800-160 mg] Cephalexin [Keflex] 500 mg PO Q6HR #40 cap 05/03/24 Allergies Allergy/AdvReac Type Severity Reaction Status Date / Time No Known Allergies Allergy Verified 08/30/23 20:16 Review of Systems ROS Statement: Those systems with pertinent positive or pertinent negative responses have been documented in the HPI. ROS Other: All systems not noted in ROS Statement are negative. Past Medical History Past Medical History: No Reported History History of Any Multi-Drug Resistant Organisms: None Reported Past Surgical History: Section, Cholecystectomy, Orthopedic Surgery Additional Past Surgical History / Comment(s): left knee scope x2 Past Psychological History: Anxiety Smoking Status: Never smoker Past Alcohol Use History: Occasional Past Drug Use History: None Reported General Exam Limitations: no limitations General appearance: alert, in no apparent distress Eye exam: Present: normal appearance, PERRL, EOMI. Absent: scleral icterus, conjunctival injection, periorbital swelling Neck exam: Present: normal inspection. Absent: tenderness, meningismus, lymphadenopathy Respiratory exam: Present: normal lung sounds bilaterally. Absent: respiratory distress, wheezes, rales, rhonchi, stridor Cardiovascular Exam: Present: regular rate, normal rhythm, normal heart sounds. Absent: systolic murmur, diastolic murmur, rubs, gallop, clicks GI/Abdominal exam: Present: soft, tenderness (RLQ and right mid-abdomen), rebound (RLQ), normal bowel sounds. Absent: distended, guarding, rigid Extremities exam: Present: normal inspection, full ROM, normal capillary refill. Absent: tenderness, pedal edema, joint swelling, calf tenderness Back exam: Present: normal inspection Neurological exam: Present: alert, oriented X3, CN II-XII intact Skin exam: Present: warm, dry, intact, normal color. Absent: rash Course Vital Signs 05/03/24 05/03/24 14:26 19:38 Temperature 97.9 F 98.9 F Pulse Rate 100 79 Respiratory 20 16 Rate Blood Pressure 136/91 118/86 O2 Sat by Pulse 99 98 Oximetry Medical Decision Making - Medical Decision Making Was pt. sent in by a medical professional or institution (, PA, GUEST SERVICES COORDINATOR, urgent care, hospital, or senior living...) When possible be specific @ -No Did you speak to anyone other than the patient for history (EMS, parent, family, police, friend...)? What history was obtained from this source @ -No Did you review nursing and triage notes (agree or disagree)? Why? @ -I reviewed and agree with nursing and triage notes Were old charts reviewed (outside hosp., previous admission, EMS record, old EKG, old radiological studies, urgent care reports/EKG's, senior living records)? Report findings @ -No old charts were reviewed Differential Diagnosis (chest pain, altered mental status, abdominal pain women, abdominal pain men, vaginal bleeding, weakness, fever, dyspnea, syncope, headache, dizziness, GI bleed, back pain, seizure, CVA, palpatations, mental health, musculoskeletal)? @ -Differential Abdominal Pain Women: Appendicitis, Cholecystitis, diverticulosis, ischemic bowel, pancreatitis, hepatitis, UTI, gastroenteritis, AAA, incarcerated hernia, bowel obstruction, constipation, inflammatory bowel, hepatitis, peptic ulcer disease, splenic infarction, perforated viscus, vulvitis, ovarian torsion, PID, kidney stone, placenta abruption, this is not meant to be an all-inclusive list EKG interpreted by me (3pts min.). @ -none X-rays interpreted by me (1pt min.). @ -None done CT interpreted by me (1pt min.). @ -CT of the abdomen pelvis reveals possible 2.8 cm cyst of the right ovary enlargement of the ovary and IUD present that is posteriorly tilted with possible migration or erosion of the maintain elevated to the anterior myometrium U/S interpreted by me (1pt. min.). @ -transvaginal ultrasound no evidence for ovarian torsion with a posterior tilt of the IUD and a 3.8 cm cyst of the right ovary. What testing was considered but not performed or refused? (CT, X-rays, U/S, labs)? Why? @ -None What meds were considered but not given or refused? Why? @ -None Did you discuss the management of the patient with other professionals (professionals i.e. , PA, GUEST SERVICES COORDINATOR, lab, RT, psych nurse, older adult social work specialist, assembler final, teacher, security control room officer, case resolution specialist)? Give summary @ -No Was smoking cessation discussed for >3mins.? @ -No Was critical care preformed (if so, how long)? @ -No Were there social determinants of health that impacted care today? How? (Homelessness, low income, unemployed, alcoholism, drug addiction, transportation, low edu. Level, literacy, decrease access to med. care, care home, rehab)? @ -No Was there de-escalation of care discussed even if they declined (Discuss DNR or withdrawal of care, Hospice)? DNR status @ -No What co-morbidities impacted this encounter? (DM, HTN, Smoking, COPD, CAD, Cancer, CVA, ARF, Chemo, Hep., AIDS, mental health diagnosis, sleep apnea, morbid obesity)? @ -None Was patient admitted / discharged? Hospital course, mention meds given and route, prescriptions, significant lab abnormalities, going to OR and other pertinent info. @ -discharged. 33-year-old female evaluated. Patient resting comfortably in no acute distress. Vitals are stable. Examination reveals right lower quadrant abdominal pain, positive Rovsing sign, and pain over mcburney's point. patient will be treated with IVF pending labs, UA and CT imaging. patient deferred antiemetics and pain medication at this time stating that her pain is tolerated with ice and heating packs. CBC, CMP unremarkable, lactic acid nonelevated 0.7, UA remarkable for infection including positive nitrates, large leukocyte esterase and white blood cells in urine blood cells. CT unremarkable. 2.8 cm cyst of the right ovary with enlargement of the ovary. Concern for size of ovary ultrasound ordered to rule out left ovarian torsion. Discussed findings with patient and she will undergo ultrasound at this time. Patient was offered pain medication but she has declined. Vaginal ultrasound negative for ovarian torsion. Recommend that patient continue symptomatic treatment at home and follows up with her pot puncher within the next few weeks for further evalua tion. All questions answered at bedside and strict return parameters laurie with the patient she is verbalized understanding. Case discussed with Dr. Castillo Undiagnosed new problem with uncertain prognosis? @ -No Drug Therapy requiring intensive monitoring for toxicity (Heparin, Nitro, Insulin, Cardizem)? @ -No Were any procedures done? @ -No Diagnosis/symptom? @ -Ovarian cyst, urinary tract infection Acute, or Chronic, or Acute on Chronic? @ -Acute Uncomplicated (without systemic symptoms) or Complicated (systemic symptoms)? @ -Uncomplicated Side effects of treatment? @ -No Exacerbation, Progression, or Severe Exacerbation? @ -No Poses a threat to life or bodily function? How? (Chest pain, [place], MA, pneumonia, PE, COPD, DKA, ARF, appy, cholecystitis, CVA, Diverticulitis, Homicidal, Suicidal, threat to staff... and all critical care pts) @ -No - Lab Data Result diagrams: 05/03/24 15:09 05/03/24 15:09 Lab Results 05/03/24 05/03/24 05/03/24 Range/Units 15:09 15:09 15:09 WBC 9.3 (3.8-10.6) k/uL RBC 4.35 (3.80-5.40) m/uL Hgb 12.8 (11.4-16.0) gm/dL Hct 38.3 (34.0-46.0) % MCV 88.0 (80.0-100.0) fL MCH 29.3 (25.0-35.0) pg MCHC 33.3 (31.0-37.0) g/dL RDW 13.9 (11.5-15.5) % Plt Count 300 (150-450) k/uL MPV 7.8 Neutrophils % 74 % Lymphocytes % 17 % Monocytes % 6 % Eosinophils % 1 % Basophils % 0 % Neutrophils # 6.9 (1.3-7.7) k/uL Lymphocytes # 1.6 (1.0-4.8) k/uL Monocytes # 0.5 (0-1.0) k/uL Eosinophils # 0.1 (0-0.7) k/uL Basophils # 0.0 (0-0.2) k/uL Sodium (137-145) mmol/L Potassium (3.5-5.1) mmol/L Chloride (98-107) mmol/L Carbon Dioxide (22-30) mmol/L Anion Gap mmol/L BUN (7-17) mg/dL Creatinine (0.52-1.04) mg/dL Est GFR (CKD-EPI)AfAm (>60 ml/min/1.73 sqM) Est GFR (CKD-EPI)NonAf (>60 ml/min/1.73 sqM) Glucose (74-99) mg/dL Plasma Lactic Acid Noah (0.7-2.0) mmol/L Calcium (8.4-10.2) mg/dL Total Bilirubin (0.2-1.3) mg/dL AST (14-36) U/L ALT (4-34) U/L Alkaline Phosphatase (38-126) U/L Total Protein (6.3-8.2) g/dL Albumin (3.5-5.0) g/dL Amylase (30-110) U/L Lipase (23-300) U/L Urine Color Yellow Urine Appearance Turbid H (Clear) Urine pH 6.0 (5.0-8.0) Ur Specific [place] 1.030 (1.001-1.035) Urine Protein 1+ H (Negative) Urine Glucose (UA) Negative (Negative) Urine Ketones 4+ H (Negative) Urine Blood Negative (Negative) Urine Nitrite Positive H (Negative) Urine Bilirubin Negative (Negative) Urine Urobilinogen <2.0 (<2.0) mg/dL Ur Leukocyte Esterase Large H (Negative) Urine RBC 11 H (0-5) /hpf Urine WBC 69 H (0-5) /hpf Ur Squamous Epith Cells 28 H (0-4) /hpf Urine Bacteria Occasional H (None) /hpf Urine Mucus Many H (None) /hpf Urine Yeast (Budding) Rare H (None) /hpf Urine HCG, Qual Not Detected (Not Detectd) 05/03/24 05/03/24 Range/Units 15:09 15:09 WBC (3.8-10.6) k/uL RBC (3.80-5.40) m/uL Hgb (11.4-16.0) gm/dL Hct (34.0-46.0) % MCV (80.0-100.0) fL MCH (25.0-35.0) pg MCHC (31.0-37.0) g/dL RDW (11.5-15.5) % Plt Count (150-450) k/uL MPV Neutrophils % % Lymphocytes % % Monocytes % % Eosinophils % % Basophils % % Neutrophils # (1.3-7.7) k/uL Lymphocytes # (1.0-4.8) k/uL Monocytes # (0-1.0) k/uL Eosinophils # (0-0.7) k/uL Basophils # (0-0.2) k/uL Sodium 140 (137-145) mmol/L Potassium 3.8 (3.5-5.1) mmol/L Chloride 106 (98-107) mmol/L Carbon Dioxide 25 (22-30) mmol/L Anion Gap 9 mmol/L BUN 7 (7-17) mg/dL Creatinine 0.59 (0.52-1.04) mg/dL Est GFR (CKD-EPI)AfAm >90 (>60 ml/min/1.73 sqM) Est GFR (CKD-EPI)NonAf >90 (>60 ml/min/1.73 sqM) Glucose 92 (74-99) mg/dL Plasma Lactic Acid [place] 0.7 (0.7-2.0) mmol/L Calcium 9.7 (8.4-10.2) mg/dL Total Bilirubin 0.5 (0.2-1.3) mg/dL AST 21 (14-36) U/L ALT 18 (4-34) U/L Alkaline Phosphatase 64 (38-126) U/L Total Protein 7.2 (6.3-8.2) g/dL Albumin 4.2 (3.5-5.0) g/dL Amylase 48 (30-110) U/L Lipase 47 (23-300) U/L Urine Color Urine Appearance (Clear) Urine pH (5.0-8.0) Ur Specific [place] (1.001-1.035) Urine Protein (Negative) Urine Glucose (UA) (Negative) Urine Ketones (Negative) Urine Blood (Negative) Urine Nitrite (Negative) Urine Bilirubin (Negative) Urine Urobilinogen (<2.0) mg/dL Ur Leukocyte Esterase (Negative) Urine RBC (0-5) /hpf Urine WBC (0-5) /hpf Ur Squamous Epith Cells (0-4) /hpf Urine Bacteria (None) /hpf Urine Mucus (None) /hpf Urine Yeast (Budding) (None) /hpf Urine HCG, Qual (Not Detectd) Disposition Clinical Impression: Ovarian cyst, UTI (urinary tract infection), Abdominal pain Disposition: HOME SELF-CARE Condition: Good Instructions (If sedation given, give patient instructions): Ovarian Cyst (ED), Urinary Tract Infection in Women (ED) Additional Instructions: Return to the emergency department for any new or worsening symptoms. Complete full course of antibiotics as prescribed. Recommend follow-up with pot puncher if symptoms worsen or do not improve. Prescriptions: Cephalexin [Keflex] 500 mg PO Q6HR #40 cap Is patient prescribed a controlled substance at d/c from ED?: No Referrals: Angela Ashraf MD [Primary Care Provider] - 1-2 days Time of Disposition: 19:10
[2024-05-03 15:22] LABS: Basophils % (A) 0 %; Eosinophils # (A) 0.1 k/uL (0-0.7); Eosinophils % (A) 1 %; HCT 38.3 % (34.0-46.0); HGB 12.8 gm/dL (11.4-16.0); Lymphocytes # (A) 1.6 k/uL (1.0-4.8); Lymphocytes % (A) 17 %; MCH 29.3 pg (25.0-35.0); MCHC 33.3 g/dL (31.0-37.0); Mean Platelet Volume 7.8; Monocytes # (A) 0.5 k/uL (0-1.0); Monocytes % (A) 6 %; Neutrophils # (A) 6.9 k/uL (1.3-7.7); Neutrophils % (A) 74 %; Platelet Count 300 k/uL (150-450); RBC 4.35 m/uL (3.80-5.40); RDW 13.9 % (11.5-15.5); WBC 9.3 k/uL (3.8-10.6)
[2024-05-03 15:34] LABS: ALT 18 U/L (4-34); AST 21 U/L (14-36); African American GFR (CKD) >90 (>60 ml/min/1.73 sqM); Albumin 4.2 g/dL (3.5-5.0); Alkaline Phosphatase 64 U/L (38-126); Amylase 48 U/L (30-110); Anion Gap 9 mmol/L; Blood Urea Nitrogen 7 mg/dL (7-17); Calcium 9.7 mg/dL (8.4-10.2); Carbon Dioxide 25 mmol/L (22-30); Chloride 106 mmol/L (98-107); Glucose 92 mg/dL (74-99); Lipase 47 U/L (23-300); Non-African American GFR(CKD) >90 (>60 ml/min/1.73 sqM); Potassium 3.8 mmol/L (3.5-5.1); Sodium 140 mmol/L (137-145); Total Bilirubin 0.5 mg/dL (0.2-1.3); Total Protein 7.2 g/dL (6.3-8.2)
[2024-05-03] MEDS: SODIUM CHLORIDE 0.9% 1,000 ML IV STA (15:44)
[2024-05-03 15:53] LABS: Appearance,Urine Turbid (Clear); Bacteria,Urine Occasional /hpf; Bilirubin,Urine Negative (Negative); Blood,Urine Negative (Negative); Budding Yeast,Urine Rare /hpf; Color,Urine Yellow; Glucose,Urine (UA) Negative (Negative); Ketones,Urine 4+ (Negative); Leukocyte Esterase,Urine Large (Negative); Mucus,Urine Many /hpf; Nitrite,Urine Positive (Negative); Protein,Urine 1+ (Negative); RBC,Urine 11 /hpf (0-5); Squamous Epithelial Cell,Urine 28 /hpf (0-4); Urobilinogen,Urine <2.0 mg/dL (<2.0); WBC,Urine 69 /hpf (0-5)
--- NOTE | 2024-05-03 17:55 | CT ---
EXAMINATION TYPE: CT abdomen pelvis w con DATE OF EXAM: 05/03/2024 COMPARISON: 02/09/2022 HISTORY: 33-year-old female RLQ pain x3 days getting worse TECHNIQUE: Contiguous axial scanning of the abdomen and pelvis following administration of 100 ml Iso matteo 300 IV contrast. Delayed images through the kidneys and coronal/sagittal reconstructions perform ed. CT DLP: 1130 mGycm Automated exposure control for dose reduction was used. FINDINGS: Heart normal size without pericardial effusion. Lung bases clear without pleural effusion. Small hiatal hernia. Focal fat along the anterior falciform ligament is unchanged. Portal venous system is patent. No bili lynne ductal dilatation. Cholecystectomy clips. Adrenal glands, right kidney, spleen, and pancreas show no gross abnormality. 3 mm nonobstructive left renal stone. Symmetric uptake and excretion of contrast from both kidneys. The mild proximal jejunal fold thickening. No dilated small bowel, free fluid, or free air. No mesenteric or retroperitoneal lymphadenopathy. Normal appendix. Mild scattered stool. No pericolonic inflammatory change. Bladder is collapsed. Uterus anteverted with IUD in place. Possible posterior tilting of the IUD whic h could reflect some erosion of the main frame end of the IUD into the anterior myometrium. Refer to sagittal image 77. There is a 1.1 cm follicle in the left ovary. Possible larger 2.9 cm dominant follicle or functional cyst of the right ovary. Right ovary itself measures 4.6 x 4.5 x 3.5 cm for a volume of 36.2 mL which is enlarged. Punctate phlebolith right side of the pelvis. No abnormal fluid collection in the pelvis or pelvic ly mphadenopathy. Bones: No osseous destructive process. IMPRESSION: 1. POSSIBLE 2.9 CM CYST OF THE RIGHT OVARY. THE RIGHT OVARY OVERALL IS ENLARGED UP TO 36.2 ML. CONSID ER PELVIC ULTRASOUND WITH OVARIAN DOPPLER ASSESSMENT FOR FURTHER EVALUATION IF INDICATED. 2. AN IUD IS PRESENT. IUD APPEARS POSTERIORLY TILTED. UNCLEAR IF THIS REPRESENTS MIGRATION/EROSION OF THE mainframe end of the IUD into the anterior myometrium. 3. Normal appendix. 4. Some mildly thickened proximal jejunal loops may be due to nondistention or a nonspecific mild ent eritis. 5. Nonobstructive 3 mm left renal stone. [facility], , 05/03/2024 5:52 PM
--- NOTE | 2024-05-03 18:55 | US ---
EXAMINATION TYPE: US transvaginal plus Dopplers DATE OF EXAM: 05/03/2024 COMPARISON: CT today CLINICAL INDICATION: Female, 33 years old with history of r/o torsion; Right ovary enlarged. (tw ins). 1 . IUD placed 04/22/24 TECHNIQUE: Transvaginal (TV). Color Doppler and spectral waveform analysis of the ovarian arteries and veins. Date of LMP: 04/19/24 EXAM MEASUREMENTS: Uterus: 8.3 x 4.8 x 4.1 cm Endometrial Stripe: 0.7 cm Right Ovary: 4.6 x 3.5 x 3.3 cm Left Ovary: 3.1 x 2.0 x 1.4 cm 1. Uterus: Anteverted and otherwise wnl 2. Endometrium: No gross abnormality. Mechanical Laboratory Technician notes: IUD appears to be on an angle? 3. Right Ovary: cystic area seen measuring 3.8 x 2.4 x 2.2cm 4. Left Ovary: dominant follicle seen measuring 1.2cm Spectral, color and waveform doppler imaging shows good arterial and venous flow within the ovaries ; there is no evidence for ovarian torsion. 5. Bilateral Adnexa: wnl 6. Posterior cul-de-sac: wnl IMPRESSION: 1. Posterior tilt of the IUD redemonstrated. The lower end projects anteriorly and inferiorly. Possib ly due to anteverted but retroflexed configuration of the uterus. If concern for myometrial perforati on, MRI may be needed for more detailed assessment. 2. A 3.8 cm cyst of the right ovary. Follow-up in 6-8 weeks to ensure involution. 3. No sonographic evidence for ovarian torsion. [facility], , 05/03/2024 6:53 PM
[2024-05-03] MEDS: cefTRIAXone IN SWFI 1,000 MG/10 ML SYRINGE IVP STA (19:33)
[2024-05-03 19:39] VITALS: BP 118/86; PULSE 79; RESP 16; TEMP 98.9
== END 2024-05-03 19:57 | disposition home or self-care (01) ==
LOC: EC 14:21
CPT/HCPCS: 36415; 74177; 76830; 80053; 81001; 81025; 82150; 83605; 83690; 85025; 93975; 96374; 99284

== ENCOUNTER 2024-12-26 11:02 | Emergency (ER) | payer OTHER ==
[2024-12-26 11:08] VITALS: TEMP 99.1
--- NOTE | 2024-12-26 11:44 | ED ---
ENT HPI - General Chief complaint: ENT Stated complaint: CARMELA Time Seen by Provider: 12/26/24 11:09 Source: patient, RN notes reviewed Mode of arrival: ambulatory Limitations: no limitations - History of Present Illness Initial comments: This is a 34-year-old female who presents to the emergency department for a sore throat. Patient was diagnosed with mononucleosis at urgent care 4 days ago. She was given a shot of steroids and discharged home. States that since then her throat has gotten significantly more swollen to the point where she is struggling to breathe and swallow. She went back to urgent care today. They tested her for strep throat, which was negative, and advised she come here for evaluation. States that she is also taking multiple [id number]-[id number] pain medications, but is not getting any relief in her pain. MD complaint: sore throat - Related Data Home Medications Medication Instructions Recorded Confirmed [id number] [id number] 1 tab PO DIRECTED PRN 08/02/18 12/23/20 [Excedrin] Buspirone (Uknown Dose) 1 tab PO DIRECTED PRN 12/20/20 12/23/20 Calcium Carbonate [Tums] 500 mg PO DIRECTED PRN 12/20/20 12/23/20 Depo Injection 1 dose IM DIRECTED 12/20/20 12/23/20 Depression Med (Unknown Name) 1 tab PO HS 12/20/20 12/23/20 Previous Rx's Medication Instructions Recorded HYDROcodone/APAP 7.5-325MG [[place] 1 each PO Q6HR PRN #21 tab 12/23/20 7.5] HYDROcodone/APAP 5-325MG [[place] 1 tab PO Q6HR PRN 3 Days #12 tab 02/09/22 5-325] Ondansetron Odt [Zofran Odt] 4 mg PO Q8HR PRN #10 tab 02/09/22 Sulfamethox-Tmp 800-160Mg [Bactrim 1 tab PO Q12HR 7 Days #14 tab 02/09/22 DS 800-160 mg] Cephalexin [Keflex] 500 mg PO Q6HR #40 cap 05/03/24 Amoxicillin 500 mg PO Q12HR 10 Days #20 cap 12/26/24 HYDROcodone/APAP 5-325MG [[place] 1 tab PO Q6HR PRN 3 Days #12 tab 12/26/24 5-325] Lidocaine Viscous [Xylocaine 5 - 10 ml PO Q4-6H PRN #100 ml 12/26/24 Viscous 2%] predniSONE 50 mg PO DAILY 5 Days #5 tab 12/26/24 Allergies Allergy/AdvReac Type Severity Reaction Status Date / Time No Known Allergies Allergy Verified 12/26/24 11:08 Review of Systems ROS Statement: Those systems with pertinent positive or pertinent negative responses have been documented in the HPI. ROS Other: All systems not noted in ROS Statement are negative. Past Medical History Past Medical History: No Reported History Additional Past Medical History / Comment(s): migraines History of Any Multi-Drug Resistant Organisms: None Reported Past Surgical History: Section, Cholecystectomy, Orthopedic Surgery Additional Past Surgical History / Comment(s): left knee scope x2 Past Psychological History: Anxiety Smoking Status: Never smoker Past Alcohol Use History: Occasional Past Drug Use History: None Reported General Exam Limitations: no limitations General appearance: alert, in no apparent distress Head exam: Present: atraumatic, normocephalic, normal inspection ENT exam: Present: other (Significant posterior pharyngeal erythema with tonsillar hypertrophy. No exudates.) Respiratory exam: Present: normal lung sounds bilaterally. Absent: respiratory distress, wheezes, rales, rhonchi, stridor Cardiovascular Exam: Present: regular rate, normal rhythm Neurological exam: Present: alert, oriented X3, CN II-XII intact Psychiatric exam: Present: normal affect, normal mood Skin exam: Present: warm, dry, intact, normal color. Absent: rash Course Vital Signs 12/26/24 12/26/24 11:04 14:47 Temperature 99.1 F Pulse Rate 96 77 Respiratory 16 18 Rate Blood Pressure 124/83 108/74 O2 Sat by Pulse 97 97 Oximetry Medical Decision Making - Medical Decision Making This is a 34-year-old female who presents to the emergency department for a sore throat. Was pt. sent in by a medical professional or institution? @ -No Did you speak to anyone other than the patient for history? @ -No Did you review nursing and triage notes? @ -Yes, and I agree, it is accurate with regards to the patient's symptoms. Were old charts reviewed? @ -No Differential Diagnosis? @ -Differential Sore Throat: Strep pharyngitis, herpes zoster, COVID, influenza, GERD, allergic rhinitis, mononucleosis, this is not meant to be an all-inclusive list. EKG interpreted by me (3pts min.)? @ -Not obtained X-rays interpreted by me (1pt min.)? @ -Not obtained CT interpreted by me (1pt min.)? @ -CT scan of the soft tissue neck obtained. My interpretation identifies no abscess formation. U/S interpreted by me (1pt. min.)? @ -Not obtained What testing was considered but not performed? (CT, X-rays, U/S, labs)? Why? @ -Rapid strep test, however patient declined as she had one done at urgent care earlier today. What meds were considered but not given? Why? @ -None Did you discuss the management of the patient with other professionals? @ -No Did you reconcile home meds? @ -No Was smoking cessation discussed for >3mins.? @ -No Was critical care preformed (if so, how long)? @ -No Were there social determinants of health that impacted care today? How? (Homelessness, low income, unemployed, alcoholism, drug addiction, transportation, low edu. Level, literacy, decrease access to med. care, senior care, rehab)? @ -No Was there de-escalation of care discussed even if they declined? (Discuss DNR or withdrawal of care, Hospice)? @ -No What co-morbidities impacted this encounter? (DM, HTN, Smoking, COPD, CAD, Cancer, CVA, Hep., AIDS, mental health diagnosis, sleep apnea, morbid obesity)? @ -None Was patient admitted / discharged? @ -Discharged. Lab work demonstrates leukocytosis with a white blood cell count of 13.75. LFTs elevated, which can be secondary to mononucleosis. CRP elevated at 3.5. Heterophile test here was negative, however this is not always accurate depending on the onset of symptoms and she was reportedly positive at urgent care earlier this week. Patient had a strep test done at urgent care pr ior to arrival, but declined to have it repeated here. CT scan of the soft tissue neck obtained revealing scattered bilateral shotty lymphadenopathy and mild fullness of the tonsillar pillars without underlying mass or abscess. Decadron was administered in the emergency department and her pain was managed. She was tolerating oral intake. Amoxicillin prescribed for any additional infectious component given the severity of her tonsillar enlargement. She was also given prescriptions for prednisone, viscous lidocaine, and [place] for severe bouts of pain. Patient discharged home in stable condition with strict return parameters. Case discussed with ED attending Dr. Koch. Return precautions reviewed in depth, the patient is instructed to return to the emergency department with any new, worsening, or concerning symptoms. Patient verbalized understanding. Undiagnosed new problem with uncertain prognosis? @ -None Drug Therapy requiring intensive monitoring for toxicity (Heparin, Nitro, Insulin, Cardizem)? @ -None Were any procedures done? @ -None Diagnosis/symptom? @ -Mononucleosis, pharyngitis, dysphagia Acute, or Chronic, or Acute on Chronic? @ -Acute Uncomplicated (without systemic symptoms) or Complicated (systemic symptoms)? @ -Uncomplicated Side effects of treatment? @ -None Exacerbation, Progression, or Severe Exacerbation] @ -Not applicable Poses a threat to life or bodily function? @ -The pain is making it difficult for her to function in terms of eating - Lab Data Result diagrams: 12/26/24 11:40 12/26/24 11:40 Lab Results 12/26/24 12/26/24 12/26/24 Range/Units 11:40 11:40 11:40 WBC 13.75 H (4.50-10.00) 10*3/uL RBC 4.48 (4.10-5.20) 10*6/uL Hgb 14.1 (12.0-15.0) g/dL Hct 40.6 (37.2-46.3) % MCV 90.6 (80.0-97.0) fL MCH 31.5 (27.0-32.0) pg MCHC 34.7 (32.0-37.0) g/dL Plt Count 181 (140-440) 10*3/uL MPV 10.4 (9.5-12.2) fL Immature Gran % (Auto) 0.3 % Neutrophils % (Manual) 34 % Lymphocytes % (Manual) 51 % Monocytes % (Manual) 14 % Eosinophils % (Manual) 1 % Immature Gran # 0.04 (0.00-0.04) 10*3/uL Neutrophils # (Manual) 4.68 (1.3-7.7) k/uL Lymphocytes # (Manual) 7.01 H (1.0-4.8) k/uL Monocytes # (Manual) 1.93 H (0-1.0) k/uL Eosinophils # (Manual) 0.14 (0-0.7) k/uL Nucleated RBCs 0 (0-0) /100 WBC Manual Slide Review Performed RBC Morphology Normal Sodium 137 (137-145) mmol/L Potassium 4.0 (3.5-5.1) mmol/L Chloride 104 (98-107) mmol/L Carbon Dioxide 26 (22-30) mmol/L Anion Gap 7 mmol/L BUN 11 (7-17) mg/dL Creatinine 0.53 (0.52-1.04) mg/dL Est GFR (CKD-EPI)AfAm >90 (>60 ml/min/1.73 sqM) Est GFR (CKD-EPI)NonAf >90 (>60 ml/min/1.73 sqM) Glucose 86 (74-99) mg/dL Plasma Lactic Acid Noah 0.7 (0.7-2.0) mmol/L Calcium 9.4 (8.4-10.2) mg/dL Total Bilirubin 0.6 (0.2-1.3) mg/dL AST 208 H (14-36) U/L ALT 485 H (4-34) U/L Alkaline Phosphatase 423 H (38-126) U/L C-Reactive Protein 3.5 H (<1.0) mg/dL Total Protein 6.8 (6.3-8.2) g/dL Albumin 3.5 (3.5-5.0) g/dL HCG, Qual Heterophile Antibody (Negative) 12/26/24 12/26/24 Range/Units 11:40 13:43 WBC (4.50-10.00) 10*3/uL RBC (4.10-5.20) 10*6/uL Hgb (12.0-15.0) g/dL Hct (37.2-46.3) % MCV (80.0-97.0) fL MCH (27.0-32.0) pg MCHC (32.0-37.0) g/dL Plt Count (140-440) 10*3/uL MPV (9.5-12.2) fL Immature Gran % (Auto) % Neutrophils % (Manual) % Lymphocytes % (Manual) % Monocytes % (Manual) % Eosinophils % (Manual) % Immature Gran # (0.00-0.04) 10*3/uL Neutrophils # (Manual) (1.3-7.7) k/uL Lymphocytes # (Manual) (1.0-4.8) k/uL Monocytes # (Manual) (0-1.0) k/uL Eosinophils # (Manual) (0-0.7) k/uL Nucleated RBCs (0-0) /100 WBC Manual Slide Review RBC Morphology Sodium (137-145) mmol/L Potassium (3.5-5.1) mmol/L Chloride (98-107) mmol/L Carbon Dioxide (22-30) mmol/L Anion Gap mmol/L BUN (7-17) mg/dL Creatinine (0.52-1.04) mg/dL Est GFR (CKD-EPI)AfAm (>60 ml/min/1.73 sqM) Est GFR (CKD-EPI)NonAf (>60 ml/min/1.73 sqM) Glucose (74-99) mg/dL Plasma Lactic Acid Noah (0.7-2.0) mmol/L Calcium (8.4-10.2) mg/dL Total Bilirubin (0.2-1.3) mg/dL AST (14-36) U/L ALT (4-34) U/L Alkaline Phosphatase (38-126) U/L C-Reactive Protein (<1.0) mg/dL Total Protein (6.3-8.2) g/dL Albumin (3.5-5.0) g/dL HCG, Qual Not Detected Heterophile Antibody Negative (Negative) - Radiology Data Radiology results: report reviewed, image reviewed Disposition Clinical Impression: Mononucleosis, Pharyngitis, Dysphagia Disposition: HOME SELF-CARE Instructions (If sedation given, give patient instructions): Mononucleosis (ED), Pharyngitis (ED) Additional Instructions: Return to the emergency department with any new, worsening, or concerning symptoms. Take the antibiotic as prescribed for 10 days. Take the prednisone daily for 5 days. Take the [place] sparingly when your pain is the most severe. You can use the viscous lidocaine to try and help numb the area as well. Follow up with your primary care provider in 1-2 days. Prescriptions: Amoxicillin 500 mg PO Q12HR 10 Days #20 cap HYDROcodone/APAP 5-325MG [[place] 5-325] 1 tab PO Q6HR PRN 3 Days #12 tab PRN Reason: Pain predniSONE 50 mg PO DAILY 5 Days #5 tab Lidocaine Viscous [Xylocaine Viscous 2%] 5 - 10 ml PO Q4-6H PRN #100 ml PRN Reason: Sore Throat Is patient prescribed a controlled substance at d/c from ED?: Yes When asked, does pt state using other controlled substances?: No If prescribed controlled substance>3 days was MAPS reviewed?: Prescribed <3 Days Referrals: Angela Ashraf MD [Primary Care Provider] - 1-2 days Time of Disposition: 14:35
[2024-12-26 11:45] LABS: HCT 40.6 % (37.2-46.3); HGB 14.1 g/dL (12.0-15.0); MCH 31.5 pg (27.0-32.0); MCHC 34.7 g/dL (32.0-37.0); MCV 90.6 fL (80.0-97.0); Mean Platelet Volume 10.4 fL (9.5-12.2); Platelet Count 181 10*3/uL (140-440); RBC 4.48 10*6/uL (4.10-5.20); RDW 13.2 % (11.5-14.5); WBC 13.75 10*3/uL (4.50-10.00)
[2024-12-26] MEDS: SODIUM CHLORIDE 0.9% 1,000 ML IV ONE (11:58)
[2024-12-26] MEDS: KETOROLAC 15 MG/ML 1 ML VIAL IVP STA (12:00)
[2024-12-26] MEDS: DEXAMETHASONE SOD PHOSPHATE 10 MG/ML 1 ML VIAL IVP STA (12:01)
[2024-12-26] MEDS: MORPHINE SULFATE 4 MG/ML SYRINGE IVP STA (12:01)
[2024-12-26] MEDS: LIDOCAINE VISCOUS 2% 15 ML CUP PO ONE (12:02)
[2024-12-26 12:13] LABS: ALT 485 U/L (4-34); AST 208 U/L (14-36); African American GFR (CKD) >90 (>60 ml/min/1.73 sqM); Albumin 3.5 g/dL (3.5-5.0); Alkaline Phosphatase 423 U/L (38-126); Anion Gap 7 mmol/L; Blood Urea Nitrogen 11 mg/dL (7-17); C Reactive Protein 3.5 mg/dL (<1.0); Calcium 9.4 mg/dL (8.4-10.2); Carbon Dioxide 26 mmol/L (22-30); Chloride 104 mmol/L (98-107); Glucose 86 mg/dL (74-99); Non-African American GFR(CKD) >90 (>60 ml/min/1.73 sqM); Sodium 137 mmol/L (137-145); Total Bilirubin 0.6 mg/dL (0.2-1.3); Total Protein 6.8 g/dL (6.3-8.2)
[2024-12-26 13:03] LABS: Eosinophils # (M) 0.14 k/uL (0-0.7); Lymphocytes # (M) 7.01 k/uL (1.0-4.8); Monocytes # (M) 1.93 k/uL (0-1.0); Neutrophils # (M) 4.68 k/uL (1.3-7.7); Neutrophils % (M) 34 %; Nucleated Red Blood Cells 0 /100 WBC (0-0); Total Cells Counted 100
[2024-12-26 13:05] LABS: RBC Morphology Normal
--- NOTE | 2024-12-26 13:43 | CT ---
EXAMINATION TYPE: CT soft tissue neck w con DATE OF EXAM: 12/26/2024 12:59 PM COMPARISON: None. CLINICAL INDICATION: Female, 34 years old with history of Neck pain and swelling, dysphagia, Sore thr oat, mono positive. TECHNIQUE: Axial images at 3 mm thick sections. Reconstructed images in the coronal plane and sagitt al plane are reviewed. Contrast used:100 mL of Isovue 300 with IV Contrast, (none if empty) Oral contrast used: (none if empty) CT DLP: 290 mGycm, Automated exposure control for dose reduction was used. FINDINGS: Limited CT sections are obtained the lung apices. The lung apices appear clear. CT neck: The torus tubarius and fossa of [place] are normal. Nurse Staff Industrial spaces are normal. Para nasal sinuses and mastoid air cells are clear. Parotid glands appear normal and symmetrical. Submandibular glands, are normal. Parapharyngeal spac es are normal. No suspicious adenopathy is evident. There are multiple bilateral shotty lymph nodes present. There is mild prominence of the bilateral tonsillar pillars. No underlying mass or abscess e vident. The hypopharynx appears within normal limits. Vocal cord level appear symmetrical. Thyroid as visualized is normal. Osseous structures are normal. IMPRESSION: 1. Scattered bilateral shotty lymphadenopathy. No suspicious enlarged lymph nodes evident. 2. Mild fullness of the tonsillar pillars without underlying mass or abscess. [facility], , 12/26/2024 1:41 PM
[2024-12-26] MEDS: HYDROmorphone 1 MG/ML 1 ML SYRINGE IVP STA (14:09)
[2024-12-26 14:48] VITALS: BP 108/74; PULSE 77; RESP 18
== END 2024-12-26 15:06 | disposition home or self-care (01) ==
LOC: EC 11:02
DX: B27.90 Infectious mononucleosis, unspecified without complication (principal); R13.10 Dysphagia, unspecified
CPT/HCPCS: 36415; 80053; 83605; 85025; 86140; 86308; 84703; 70491; 99285; 96374; 96375; 96361; J2270; J1100; J1171; J1885; Q9967